=== PATIENT | male | born 2005 | race Caucasian/White ===

== ENCOUNTER 2025-05-12 18:04 | Emergency (ER) | payer MEDICAID, SELFPAY ==
[2025-05-12 18:07] VITALS: BP 123/76; PULSE 90; RESP 18; TEMP 36.3; O2SAT 98; BMI 33.5
--- NOTE | 2025-05-12 18:59 | EKG12_ITS ---
Test Reason : [facility] Blood Pressure : */* mmHG Vent. Rate : 86 BPM Atrial Rate : 86 BPM P-R Int : 154 ms QRS Dur : 94 ms QT Int : 330 ms P-R-T Axes : 44 72 41 degrees QTcB Int : 394 ms Normal sinus rhythm Normal ECG Confirmed by Pankaj Kellogg ([id number]), offline editor DARLIN HADDAD ([id number]) on 05/14/2025 10:28:08 AM Referred By: Confirmed By: Pankaj Kellogg
[2025-05-12 19:11] LABS: Hematocrit 49.5 % (40-54); Hemoglobin 16.7 g/dL (13.0-16.5); Immature Granulocytes Count 0.020 X10^3/uL (0.0-0.0); Mean Corp Hgb Conc 33.7 g/dL (32-36); Mean Corpuscular Volume 87.3 fL (80-94); Mean Platelet Vol. 9.9 fl (6.2-12.0); NRBC Flagged by Analyzer 0 % (0-5); Platelet Count 243 K/mm3 (150-450); RBC Distribution Width CV 12.9 % (11.6-14.6); RBC Distribution Width SD 41.4 fl (35.1-43.9); Red Blood Count 5.67 M/mm3 (4.6-6.2); White Blood Count 6.4 K/mm3 (4.4-11.0)
[2025-05-12 19:51] LABS: Alcohol, Blood (Medical)-Serum < 10.1 mg/dL (<=10.0)
[2025-05-12 19:52] LABS: AST(SGOT) 19 U/L (<=37); Alanine Aminotransfer ALT/SGPT 41 U/L (<=46); Albumin, Serum 5.0 g/dL (3.5-5.0); Alkaline Phosphatase 65 U/L (40-129); Anion Gap 11 (5-15); BUN 7 mg/dL (4-19); BUN/Creat Ratio 8.8 RATIO (10-20); Calcium,Total 9.5 mg/dL (7.6-11.0); Carbon Dioxide 26.2 mmol/L (21.0-32.0); Chloride 104 mmol/L (98-108); Estimated Creatinine Clearance 176.82 ml/min (50-250); Globulin 3.1 g/dL (2.2-4.2); Glucose 101 mg/dL (70-99); Potassium 4.1 mmol/L (3.3-5.1)
--- NOTE | 2025-05-12 20:09 | EX.ED.VIS.PS ---
HPI HPI - Psych History of Present Illness Chief Complaint: Mental Health Narrative Narrative: Patient was seen and examined after presenting to ED for suicidal thoughts states that he thinks he needs to be evaluated for his depression but reports that he has been having increasingly suicidal thoughts thinks will either overdose or possibly get his hands on a gun states that he does impulsively buy things but also reports that he is trying to sell the laptop and somebody actually offered him a trade they would give him a gun and exchanged for a laptop states he is plugged in with a psychiatrist who recommended he come in for evaluation. PFSH PFSH Medical History ADHD Depression Anxiety Home Medications ?Medication ?Instructions ?Recorded ?Last Taken ?Type aripiprazole 5 mg tablet 5 mg PO QHS 05/12/25 05/11/25 History venlafaxine 150 mg 150 mg PO QHS 05/12/25 05/11/25 History capsule,extended release 24 hr Allergy/AdvReac Type Severity Reaction Status Date / Time aspirin Allergy Bleeding Verified 05/12/25 18:09 Family History no significant family his Surgical History H/O hand surgery H/O foot surgery Social History household members: family Smoking Status: Never smoker ROS ROS ED ROS Narrative Pertinent Positives: Suicidal thoughts with a plan Pertinent Negatives: HI The remainder of review of systems negative unless otherwise stated in the HPI above. EXAM Physical Exam Narrative Exam Narrative: Afebrile hemodynamically stable does not appear toxic or in distress normocephalic and atraumatic mentating appropriately does not have pressured speech does not seem to be responding to internal stimulus. Oxygenating well on room air Const Vital Signs: 05/12/25 18:07 Temperature 97.3 F L Temperature Source Temporal Pulse Rate 90 Respiratory Rate 18 Blood Pressure 123/76 H Blood Pressure Mean 91 Pulse Ox 98 Oxygen Delivery Method Room Air MDM MDM MDM Narrative Medical decision making narrative: Nursing notes, triage notes, available previous documentation, and vital signs were reviewed. Any discrepancies noted were addressed. Labs Reviewed: No leukocytosis or leukopenia hemoglobin is 16.7 no electrolyte abnormality renal insufficiency or transaminitis alcohol level is negative toxicology screen is pending EKG: EKG shows a normal sinus rhythm rate of 86 DC interval and QTc are otherwise appropriate. EKG interpretation is noted and agreed to in the EMR. The interpretation of this patient's EKG contributed directly to the care and management of this patient. Previous Documentation Reviewed: None available or applicable at this time. 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 I think the patient needs to be placed somewhere currently he is voluntary but I would pink slip him otherwise social work is already working on placement. This note was made utilizing voice recognition software. All attempts were made to correct spelling or other errors prior to note completion. However, due to the fast-paced nature of emergency medicine, some errors may still be present. Lab Data Labs: Laboratory Results - last 24 hr 05/12/25 18:50 WBC 6.4 RBC 5.67 Hgb 16.7 H Hct 49.5 MCV 87.3 MCH 29.5 MCHC 33.7 RDW Std Deviation 41.4 RDW Coeff of Teagan 12.9 Plt Count 243 MPV 9.9 Immature Gran % (Auto) 0.300 Neut % (Auto) 49.4 Lymph % (Auto) 41.6 H [place] % (Auto) 7.2 Eos % (Auto) 0.9 Baso % (Auto) 0.6 Absolute Neuts (auto) 3.2 Absolute Lymphs (auto) 2.66 Nucleated RBC % 0 Sodium 141 Potassium 4.1 Chloride 104 Carbon Dioxide 26.2 Anion Gap 11 BUN 7 Creatinine 0.82 Estim Creat Clear Calc 176.82 Est GFR (MDRD) Non-Af 130 BUN/Creatinine Ratio 8.8 L Glucose 101 H Calcium 9.5 Total Bilirubin 0.30 AST 19 ALT 41 Alkaline Phosphatase 65 Total Protein 8.1 Albumin 5.0 Globulin 3.1 Albumin/Globulin Ratio 1.6 Ethyl Alcohol < 10.1 Discharge Plan Triage Chief Complaint: Mental Health ED Provider: [facility] Dx/Rx/DC Orders Clinical Impression: Suicidal ideation, Depression Prescriptions: No Action venlafaxine 150 mg capsule,extended release 24hr 150 mg PO QHS aripiprazole 5 mg tablet 5 mg PO QHS Primary Care Provider: Care Physician,No Primary Referrals: Care Physician,No Primary [Primary Care Provider, Medical] Print Language: Guamanian
--- NOTE | 2025-05-12 20:10 | CM.ED ---
Social Work Psychiatric Assessment Reason for consult: ?Mental health Informant(s): ?patient , medical record Chief Complaint: ??Patient presents to the ED with increased suicidal ideations with plan and intent.?? Patient reports that his depression is getting worse, that his medications are not working, that the world is a terrible place and there is nothing that makes his life better and feels that everything makes his life harder.?? Patient states that he feels the world ?sucks?.? Patient states that he has thoughts of overdosing on medications, shooting himself with a gun or poisoning himself with carbon monoxide from a car.?? Patient states he has these thoughts daily, all day and they are difficult to control.? Patient states his depression and suicidal thoughts have gotten worse over the last month or two and he cannot find a reason to live.?? Patients sleep has been decreased, stating he wakes up multiple times a night, every night.? Patient reports to no motivation to participate in life, that he spends most days in bed.? Patient told physician that he was offered a trade of a gun for his computer, patient states he thought about it but decided he needs the money more because ?if I do , I want my mom to have something?.? ?Patient denies auditory or visual hallucinations, denies homicidal ideations.? Marital/Social History: patient is a single 19 year old male Living Situation: ?Patient lives with his mother Support/Resources: ?patient denies any support in his life History: None Education and Employment History: patient did not attend school past the 9th grade.? Patient worked for a [employer] for about 5 months in September, started a new job last week at another [employer] Mental Health Treatment/History: ?Patient sees a psychiatrist and therapist at [facility].?? Triggers/Stressors to mental health: ?Cant hold a job, doesn?t see any point in living, does not have any motivation to change his life Coping Skills: ?watching tik tok, playing games on his computer History of Abuse (physical/sexual/verbal/emotional): denies Substance Abuse Current/Historical: denies Risk to Self/Others: ? Suicidal (thought/plan/intent/attempt): ?patient expressed suicidal ideations with plans and intent ? Access to Lethal Means: ?yes ? Homicidal (thought/plan/intent/attempt): ?none ? History of Violence (self/others/objects): ?none Mental Status Exam: ??? Orientation: ??patient is alert and oriented x 4 ??? Memory: intact Appearance/General Behavior: ?patient was clean, appropriate for situation Mood/Affect: ?flat, would laugh at times Communication Pattern: ?responds to questions, Thought Process: ?appropriate General Intellectual Functioning: average Judgment: ?poor to fair Insight: ?poor to fair Plan: Due to patients suicidal ideations with plan and intent, patients lack of support, and feeling that his medications no longer work, inpatient psychiatric hospitalization is recommended. Physician consulted and in agreement with same. Cherri De Santiago, FIELD CLINICAL ENGINEER, ADVERTISING MATERIAL DISTRIBUTOR
[2025-05-12 21:09] LABS: Barbiturate Urine NEGATIVE (< 200 ng/mL); Benzodiazepine Urine NEGATIVE (< 200 ng/mL); PCP Urine NEGATIVE (< 25 ng/mL); THC Urine NEGATIVE (< 50 ng/mL)
[2025-05-12 21:23] VITALS: BP 123/76; PULSE 90; RESP 18; TEMP 36.3; O2SAT 98
--- NOTE | 2025-05-12 21:32 | CM.ED ---
Social Work Patient was accepted at [facility]. Patient aware of same, permission given for to contact patients mother to notify about admission and transfer to [facility]. Mom was notified and all questions answered as able. No further needs at this time. Cherri De Santiago, THERAPIST RRT, INVOICING MACHINE OPERATOR
[2025-05-13 00:40] VITALS: BP 122/82; PULSE 90; RESP 18; TEMP 36.3; O2SAT 97
== END 2025-05-13 00:41 ==
PROVIDERS: Emergency Provider Specialist/Technologist Athletic Trainer; Visit Provider Specialist/Technologist Athletic Trainer
DX: R45.851 Suicidal ideations (principal); F32.A Depression, unspecified
CPT/HCPCS: 80053; 80307; 82077; 85025; 93005; 99284